=== PATIENT | male | born 1940 | race Caucasian/White ===

== ENCOUNTER 2017-11-14 16:15 | Outpatient (CLI) | payer OTHER, SELFPAY ==
--- NOTE | 2017-11-14 14:00 | DI.RAD_ITS ---
SYMPTOMS/DIAGNOSIS: F/U PULMONARY NODULE SEEN ON CT, SOLITARY PULMONARY NODULE , R91.1 CHEST X-RAY, PA AND LATERAL: Comparison is 05/25/17. The heart size and pulmonary vasculature are within normal limits. There are a few scattered densities in the lungs, including what appears to be a nodule in the right mid lung field laterally. This may correspond to the findings seen on the CT scan from 05/25/17. This is nonspecific. These may represent multiple calcified granulomas. No focal infiltrates, effusions or pneumothoraces are identified. Degenerative changes are seen in the spine. IMPRESSION: A few scattered small densities in the lungs. They are nonspecific. They may represent calcified granulomas. For followup of the pulmonary nodule, a CT scan of the chest should be considered. A noncontrast CT scan may be obtained.
== END 2017-11-14 16:35 ==
PROVIDERS: PCP Family Medicine; Visit Provider Family Medicine
DX: R91.1 Solitary pulmonary nodule (principal); J84.10 Pulmonary fibrosis, unspecified
CPT/HCPCS: 71046

== ENCOUNTER 2017-11-21 13:08 | Emergency (ER) | payer OTHER, SELFPAY ==
[2017-11-21 13:24] VITALS: BP 117/63; PULSE 72; RESP 20; TEMP 36.7; O2SAT 97
--- NOTE | 2017-11-21 15:45 | W.ED.GENAD ---
Discharge Plan Disposition Patient Disposition: HOME Discharge Details Chief Complaint: RashLesion Clinical Impression: Abscess, Cellulitis Primary Care Provider: Abram Jones ED Provider: Dwight Rizo [place] Meds and New Rx's Prescriptions: New cephalexin [Keflex] 500 mg capsule 500 mg PO QID Qty: 40 RF: 0 No Action aspirin 81 MG tablet,delayed release (DR/EC) 1 tab PO DAILY RF: 0 triamcinolone acetonide 15 GM cream Topical BID Qty: 30 RF: 3 omeprazole 20 MG capsule,delayed release(DR/EC) 20 mg PO DAILY Qty: 90 RF: 4 hydrochlorothiazide 25 MG tablet 1 tab PO DAILY Qty: 90 RF: 4 Metoprolol Succinate 50 MG TAB.ER.24H 50 mg PO DAILY Qty: 90 RF: 4 multivitamin 1 EACH capsule 1 ea PO DAILY RF: 0 michael rxxdxc-Wt-jazCwkllprte-tea [Apple Cider Vinegar Plus] 1 EACH tablet 1 ea PO DAILY RF: 0 glucosam-chond qm-kucevv-nx ac 1 EACH capsule 1 ea PO DAILY RF: 0 tamsulosin 0.4 MG capsule 1 - 2 cap PO HS Qty: 180 RF: 3 gabapentin 100 MG capsule 2 cap PO TID Qty: 540 RF: 3 amlodipine 5 MG tablet 5 mg PO DAILY Qty: 90 RF: 4 ranitidine HCl 150 MG capsule 150 mg PO .QOD RF: 0 L.acidoph, paracasei,B. lactis 1 EACH capsule 1 ea PO DAILY RF: 0 calcium carbonate [Tums] 200 MG tablet,chewable 200 mg PO PRN PRNRF: 0 acetaminophen [Tylenol] 325 MG tablet 650 mg PO PRN PRNRF: 0 ibuprofen 600 MG tablet 600 mg PO Q6H PRN PRNQty: 30 RF: 0 Discharge Instructions Instructions: Cellulitis (ED), Abscess (ED) Referrals: [facility] Emergency Dept. [Outside] - Return if symptoms worsen Discharge Data Discharge Date/Time-TO BE ENTERED AT DEPARTURE: 11/21/17 16:00 Medical Decision Making Department was very busy. Patient examined in triage box. The area he referred to on the left axilla is healed up nicely. The new area on the right is a draining abscess originating as ingrown hair or folliculitis, is now an abscess with accompanying cellulitis. I advised to use warm compresses five to six days times a day. No more ointments. I prescribed Keflex and sent culture of the draining fluid. I advised to return to ED if symptoms worsen otherwise with pcp. He agreed with POC. I did call Jeff the following Friday or two days later to check on him and apprise him of culture report. He reported the redness seemed to less red and the area was receding. He denies any complications from antibiotics. He does report more drainage than initially expected. The pain is the same. He is applying warm compresses 4-6 times a day. Denies any fever or N/V/D. I advised to schedule appointment with Dr. Jones for after the completion of the antibiotics. If the symptoms worse I advised to return to ED. If all resolved before appointment with Dr. Jones he could cancel appointment. I explained that the abscess may need further I&D or exploring to resolve the problem but unlikely. HPI General Mode of arrival: ambulatory. Date/Time Provider Initiated Documentation: 11/21/17 14:45. Limitations to Documentation: no limitations. Information obtained by: patient. HPI Narrative: 77 y/o male here with c/o rash, he question shingles versus infection. He noted rash under left arm that seems to have dried up but he noticed new draining rash 3-4 days under the right arm. He tells me he notices it to drain at night. It is painful when he moves his arm. He incidentally notes he had a shingles vaccine two weeks ago. Related Data Home Medications Medication Instructions Recorded Confirmed aspirin 1 tab PO DAILY 11/05/13 11/14/17 triamcinolone acetonide 0 TOPICAL BID #30 g 06/13/16 11/14/17 hydrochlorothiazide 1 tab PO DAILY #90 tab 11/14/16 11/14/17 omeprazole 20 mg PO DAILY #90 tab-cap 11/14/16 11/14/17 michael liiqis-Yt-lqkCrpijjqzc-tea 1 ea PO DAILY NS 06/13/17 11/14/17 [Apple Cider Vinegar Plus] glucosam-chond yv-scxkbf-yz ac 1 ea PO DAILY NS 06/13/17 11/14/17 multivitamin 1 ea PO DAILY NS 06/13/17 11/14/17 tamsulosin 1 - 2 cap PO HS #180 tab-cap 06/13/17 11/14/17 L.acidoph, paracasei,B. lactis 1 ea PO DAILY 07/01/17 11/14/17 ranitidine HCl 150 mg PO .QOD 07/01/17 11/14/17 acetaminophen [Tylenol] 650 mg PO PRN PRN 07/03/17 11/14/17 calcium carbonate [Tums] 200 mg PO PRN PRN 07/03/17 11/14/17 ibuprofen 600 mg PO Q6H PRN PRN #30 tab 07/03/17 11/14/17 gabapentin 2 cap PO TID #540 tab-cap 08/12/17 11/14/17 amlodipine 5 mg PO DAILY #90 tab-cap 09/18/17 11/14/17 cephalexin [Keflex] 500 mg PO QID #40 cap 11/21/17 Previous Rx's Medication Instructions Recorded hydrochlorothiazide 1 tab PO DAILY #90 tab 11/14/16 omeprazole 20 mg PO DAILY #90 tab-cap 11/14/16 tamsulosin 1 - 2 cap PO HS #180 tab-cap 06/13/17 ibuprofen 600 mg PO Q6H PRN PRN #30 tab 07/03/17 gabapentin 2 cap PO TID #540 tab-cap 08/12/17 amlodipine 5 mg PO DAILY #90 tab-cap 09/18/17 cephalexin [Keflex] 500 mg PO QID #40 cap 11/21/17 Allergies Allergy/AdvReac Type Severity Reaction Status Date / Time lisinopril AdvReac Unknown trouble Unverified 11/14/17 11:02 clearing throat General Stated Complaint: RashLesion ELIZABETH: 4 Review of Systems ENT Reports system reviewed and no additional complaints, except as docu Cardiovascular Reports system reviewed and no additional complaints, except as docu Respiratory Reports system reviewed and no additional complaints, except as docu Gastrointestinal Reports system reviewed and no additional complaints, except as docu Integumentary/Breasts Reports furuncle (versus ingrown hair to right axilla), Denies breast pain, Reports erythema and Reports wounds Comments: draining right axilla. PFSH Family History Mother Mental disorder Father Essential hypertension Heart disease Sister Neoplasm Sister Neoplasm Sister No problems noted. Medical History BPH (benign prostatic hyperplasia) Burning feet syndrome Diverticulosis GERD (gastroesophageal reflux disease) History of alcohol abuse Hypertension Left inguinal hernia Right inguinal hernia Spinal stenosis Umbilical hernia Social History Smoking/Tobacco Use Status: Former Tobacco Use Surgical History Colonoscopy - MAC Repair of inguinal hernia (07/03/17) Tonsillectomy Exam [facility] Head: normal to inspection General nose exam: external nose normal Face and sinus: normal facial exam Eyes General: appearance normal, both eyes and all related structures Neck Neck: normal visual inspection, full ROM and no lymphadenopathy Chest Chest: normal inspection of the chest Skin General skin exam: erythema (right axilla with draining abscess. Left axilla has dry crusted 5mm area that is now clean and dry with no redness or drainage. ) and no fluctuance Rashes: no rashes Extrem General: full ROM and normal capillary refill Right upper extremity: full ROM and normal capillary refill Shoulder/upper arm images: 1. redness to right axilla extending to anterior chest chest wall. Warm to touch. Axillary adenopathy. Small pin point hole draining yellow discharge. Underlying swelling that is firm to touch, area is size of baseball. Psych Appearance: grossly normal Mood: congruent mood Affect: normal affect Attitude: cooperative Thought Process: normal Thought Content: normal Insight: insight good Judgment: judgment good Course Vital Signs Temperature 36.7 C 11/21/17 13:24 Pulse 72 11/21/17 13:24 Respiratory Rate 20 11/21/17 13:24 Blood Pressure 117/63 11/21/17 13:24 Pulse Oximetry 97 11/21/17 13:24 Temperature 36.7 C 11/21/17 13:24 Temperature Source Temporal Artery Scan 11/21/17 13:24 Pulse 72 11/21/17 13:24 Respiratory Rate 20 11/21/17 13:24 Respiratory Effort Non-Labored 11/21/17 15:34 Blood Pressure 117/63 11/21/17 13:24 Pulse Oximetry 97 11/21/17 13:24 Oxygen Delivery Method Room Air 11/21/17 13:24 Oxygen Flow Rate 0 11/21/17 13:24 Pain Level 5 11/21/17 13:24
--- NOTE | 2017-11-21 15:49 | ED.GENADUL_ITS ---
Discharge Plan Disposition Patient Disposition: HOME Discharge Details Chief Complaint: RashLesion Clinical Impression: Abscess, Cellulitis Primary Care Provider: Abram Jones ED Provider: Dwight Rizo [place] Meds and New Rx's Prescriptions: New cephalexin [Keflex] 500 mg capsule 500 mg PO QID Qty: 40 RF: 0 No Action aspirin 81 MG tablet,delayed release (DR/EC) 1 tab PO DAILY RF: 0 triamcinolone acetonide 15 GM cream Topical BID Qty: 30 RF: 3 omeprazole 20 MG capsule,delayed release(DR/EC) 20 mg PO DAILY Qty: 90 RF: 4 hydrochlorothiazide 25 MG tablet 1 tab PO DAILY Qty: 90 RF: 4 Metoprolol Succinate 50 MG TAB.ER.24H 50 mg PO DAILY Qty: 90 RF: 4 multivitamin 1 EACH capsule 1 ea PO DAILY RF: 0 michael hrvyuj-Gp-zjeYsllkwvyb-tea [Apple Cider Vinegar Plus] 1 EACH tablet 1 ea PO DAILY RF: 0 glucosam-chond dc-gafcsm-yu ac 1 EACH capsule 1 ea PO DAILY RF: 0 tamsulosin 0.4 MG capsule 1 - 2 cap PO HS Qty: 180 RF: 3 gabapentin 100 MG capsule 2 cap PO TID Qty: 540 RF: 3 amlodipine 5 MG tablet 5 mg PO DAILY Qty: 90 RF: 4 ranitidine HCl 150 MG capsule 150 mg PO .QOD RF: 0 L.acidoph, paracasei,B. lactis 1 EACH capsule 1 ea PO DAILY RF: 0 calcium carbonate [Tums] 200 MG tablet,chewable 200 mg PO PRN PRNRF: 0 acetaminophen [Tylenol] 325 MG tablet 650 mg PO PRN PRNRF: 0 ibuprofen 600 MG tablet 600 mg PO Q6H PRN PRNQty: 30 RF: 0 Discharge Instructions Instructions: Cellulitis (ED), Abscess (ED) Referrals: [facility] Emergency Dept. [Outside] - Return if symptoms worsen Discharge Data Discharge Date/Time-TO BE ENTERED AT DEPARTURE: 11/21/17 16:00 Medical Decision Making Department was very busy. Patient examined in triage box. The area he referred to on the left axilla is healed up nicely. The new area on the right is a draining abscess originating as ingrown hair or folliculitis, is now an abscess with accompanying cellulitis. I advised to use warm compresses five to six days times a day. No more ointments. I prescribed Keflex and sent culture of the draining fluid. I advised to return to ED if symptoms worsen otherwise with pcp. He agreed with POC. I did call Jeff the following Friday or two days later to check on him and apprise him of culture report. He reported the redness seemed to less red and the area was receding. He denies any complications from antibiotics. He does report more drainage than initially expected. The pain is the same. He is applying warm compresses 4-6 times a day. Denies any fever or N/V/D. I advised to schedule appointment with Dr. Jones for after the completion of the antibiotics. If the symptoms worse I advised to return to ED. If all resolved before appointment with Dr. Jones he could cancel appointment. I explained that the abscess may need further I&D or exploring to resolve the problem but unlikely. HPI General Mode of arrival: ambulatory . Date/Time Provider Initiated Documentation: 11/21/17 14:45 . Limitations to Documentation: no limitations . Information obtained by: patient . HPI Narrative: 77 y/o male here with c/o rash, he question shingles versus infection. He noted rash under left arm that seems to have dried up but he noticed new draining rash 3-4 days under the right arm. He tells me he notices it to drain at night. It is painful when he moves his arm. He incidentally notes he had a shingles vaccine two weeks ago. Related Data Home Medications Medication Instructions Recorded Confirmed aspirin 1 tab PO DAILY 11/05/13 11/14/17 triamcinolone acetonide 0 TOPICAL BID #30 g 06/13/16 11/14/17 hydrochlorothiazide 1 tab PO DAILY #90 tab 11/14/16 11/14/17 omeprazole 20 mg PO DAILY #90 tab-cap 11/14/16 11/14/17 michael ucwsdy-Xx-rydNxjwxmyjd-tea 1 ea PO DAILY NS 06/13/17 11/14/17 [Apple Cider Vinegar Plus] glucosam-chond rm-dtypxi-ei ac 1 ea PO DAILY NS 06/13/17 11/14/17 multivitamin 1 ea PO DAILY NS 06/13/17 11/14/17 tamsulosin 1 - 2 cap PO HS #180 tab-cap 06/13/17 11/14/17 L.acidoph, paracasei,B. lactis 1 ea PO DAILY 07/01/17 11/14/17 ranitidine HCl 150 mg PO .QOD 07/01/17 11/14/17 acetaminophen [Tylenol] 650 mg PO PRN PRN 07/03/17 11/14/17 calcium carbonate [Tums] 200 mg PO PRN PRN 07/03/17 11/14/17 ibuprofen 600 mg PO Q6H PRN PRN #30 tab 07/03/17 11/14/17 gabapentin 2 cap PO TID #540 tab-cap 08/12/17 11/14/17 amlodipine 5 mg PO DAILY #90 tab-cap 09/18/17 11/14/17 cephalexin [Keflex] 500 mg PO QID #40 cap 11/21/17 Previous Rx's Medication Instructions Recorded hydrochlorothiazide 1 tab PO DAILY #90 tab 11/14/16 omeprazole 20 mg PO DAILY #90 tab-cap 11/14/16 tamsulosin 1 - 2 cap PO HS #180 tab-cap 06/13/17 ibuprofen 600 mg PO Q6H PRN PRN #30 tab 07/03/17 gabapentin 2 cap PO TID #540 tab-cap 08/12/17 amlodipine 5 mg PO DAILY #90 tab-cap 09/18/17 cephalexin [Keflex] 500 mg PO QID #40 cap 11/21/17 Allergies Allergy/AdvReac Type Severity Reaction Status Date / Time lisinopril AdvReac Unknown trouble Unverified 11/14/17 11:02 clearing throat General Stated Complaint: RashLesion ELIZABETH: 4 Review of Systems ENT Reports system reviewed and no additional complaints, except as docu Cardiovascular Reports system reviewed and no additional complaints, except as docu Respiratory Reports system reviewed and no additional complaints, except as docu Gastrointestinal Reports system reviewed and no additional complaints, except as docu Integumentary/Breasts Reports furuncle (versus ingrown hair to right axilla), Denies breast pain, Reports erythema and Reports wounds Comments: draining right axilla. PFSH Family History Mother Mental disorder Father Essential hypertension Heart disease Sister Neoplasm Sister Neoplasm Sister No problems noted. Medical History BPH (benign prostatic hyperplasia) Burning feet syndrome Diverticulosis GERD (gastroesophageal reflux disease) History of alcohol abuse Hypertension Left inguinal hernia Right inguinal hernia Spinal stenosis Umbilical hernia Social History Smoking/Tobacco Use Status: Former Tobacco Use Surgical History Colonoscopy - MAC Repair of inguinal hernia (07/03/17) Tonsillectomy Exam [facility] Head: normal to inspection General nose exam: external nose normal Face and sinus: normal facial exam Eyes General: appearance normal, both eyes and all related structures Neck Neck: normal visual inspection, full ROM and no lymphadenopathy Chest Chest: normal inspection of the chest Skin General skin exam: erythema (right axilla with draining abscess. Left axilla has dry crusted 5mm area that is now clean and dry with no redness or drainage. ) and no fluctuance Rashes: no rashes Extrem General: full ROM and normal capillary refill Right upper extremity: full ROM and normal capillary refill Shoulder/upper arm images: 2 1. redness to right axilla extending to anterior chest chest wall. Warm to touch. Axillary adenopathy. Small pin point hole draining yellow discharge. Underlying swelling that is firm to touch, area is size of baseball. Psych Appearance: grossly normal Mood: congruent mood Affect: normal affect Attitude: cooperative Thought Process: normal Thought Content: normal Insight: insight good Judgment: judgment good Course Vital Signs Temperature 36.7 C 11/21/17 13:24 Pulse 72 11/21/17 13:24 Respiratory Rate 20 11/21/17 13:24 Blood Pressure 117/63 11/21/17 13:24 Pulse Oximetry 97 11/21/17 13:24 Temperature 36.7 C 11/21/17 13:24 Temperature Source Temporal Artery Scan 11/21/17 13:24 Pulse 72 11/21/17 13:24 Respiratory Rate 20 11/21/17 13:24 Respiratory Effort Non-Labored 11/21/17 15:34 Blood Pressure 117/63 11/21/17 13:24 Pulse Oximetry 97 11/21/17 13:24 Oxygen Delivery Method Room Air 11/21/17 13:24 Oxygen Flow Rate 0 11/21/17 13:24 Pain Level 5 11/21/17 13:24
== END 2017-11-21 16:00 | disposition home or self-care (01) ==
PROVIDERS: Emergency Provider Nurse Practitioner Family; PCP Family Medicine
DX: L02.411 Cutaneous abscess of right axilla (principal); L03.111 Cellulitis of right axilla; B95.61 Methicillin susceptible Staphylococcus aureus infection as the cause of diseases classified elsewhere; I10 Essential (primary) hypertension
CPT/HCPCS: 87077; 99283; 87070; 87186

== ENCOUNTER 2017-11-27 15:53 | Emergency (ER) | payer OTHER, SELFPAY ==
[2017-11-27 16:05] VITALS: BP 165/87; PULSE 82; RESP 16; TEMP 36.7; O2SAT 97
--- NOTE | 2017-11-27 16:23 | ED.GENADUL_ITS ---
Discharge Plan Disposition Patient Disposition: HOME Condition: Stable Discharge Details Chief Complaint: Cellulitis Clinical Impression: Hidradenitis suppurativa of right axilla, Anemia Primary Care Provider: Abram Jones ED Provider: Braeden Gann Home Meds and New Rx's Prescriptions: New doxycycline hyclate 100 mg capsule 100 mg PO BID Qty: 14 RF: 0 No Action triamcinolone acetonide 15 GM cream Topical BID Qty: 30 RF: 3 multivitamin 1 EACH capsule 1 ea PO DAILY RF: 0 glucosam-chond vs-okjwsk-xi ac 1 EACH capsule 1 ea PO DAILY RF: 0 tamsulosin 0.4 MG capsule 1 - 2 cap PO HS Qty: 180 RF: 3 gabapentin 100 MG capsule 2 cap PO TID Qty: 540 RF: 3 amlodipine 5 MG tablet 5 mg PO DAILY Qty: 90 RF: 4 hydrochlorothiazide 25 mg tablet 25 mg PO DAILY Qty: 90 RF: 4 metoprolol succinate 50 mg tablet extended release 24 hr 50 mg PO DAILY Qty: 90 RF: 4 ranitidine HCl 150 MG capsule 150 mg PO .QOD RF: 0 L.acidoph, paracasei,B. lactis 1 EACH capsule 1 ea PO DAILY RF: 0 calcium carbonate [Tums] 200 MG tablet,chewable 200 mg PO PRN PRNRF: 0 acetaminophen [Tylenol] 325 MG tablet 650 mg PO PRN PRNRF: 0 ibuprofen 600 MG tablet 600 mg PO Q6H PRN PRNQty: 30 RF: 0 cephalexin [Keflex] 500 mg capsule 500 mg PO QID Qty: 40 RF: 0 Discharge Instructions Instructions: Anemia (ED) Additional Instructions: Please take antibiotics as prescribed until fully complete and the radiology department will call you tomorrow morning for arrangement of outpatient ultrasound. Tomorrow afternoon you should also call the general surgeon for arrangement of follow-up appointment. In regards to your anemia you should schedule an appointment with your primary care provider in the next 1-2 weeks for reassessment. Referrals: Cesar Christianson DO [ [facility] STAFF PHYSICIAN] - (Call the office for arrangement of follow-up) Abram Jones MD [Primary Care Provider] - 2 weeks (for reassessment) Discharge Data Discharge Date/Time-TO BE ENTERED AT DEPARTURE: 11/27/17 18:34 Medical Decision Making Patient presenting to the emergency department for chief complaint of right axillary swelling and redness. Patient states that a couple of weeks ago he had a similar single lesion under his left arm that he was placed on Keflex for and had resolution of symptoms. Then over the last2 days he has noted some area underneath his right arm that is rapidly progressed and has started draining. Patient does state that he got a shingles shot just before the onset of all of the symptoms but is unsure if it is interconnected. Physical exam shows the appearance of hidradenitis underneath the right axilla with drainage noted. These do feel interconnected and multiple nodules. Ultrasound is not available at time of patient presentation but laboratory testing was ordered. Patient is otherwise well in appearance with no other complaints at this time. Review of labs shows no significant leukocytosis and is otherwise nondiagnostic. Of notation was a mild anemia and elevation of LFTs which the LFTs have been elevated in the past. Patient denies any bleeding episodes or other signs of occult blood loss patient was switched off of Keflex and placed upon doxycycline as I feel that this is a better treatment for hidradenitis but given multiple areas with drainage and recurrence patient was referred to general surgery for close follow-up and any further treatment recommendations. Patient was encouraged to return for any associated fever chills, rapid worsening of symptoms, or other concerns. I do not feel that any sort of incision and drainage should be performed today but patient was encouraged to continue to promote drainage by applying warm wash cloths 4 times daily. Patient also informed not to place any lotions or ointments or deodorants underneath the arms until this is fully resolved. After discussion of diagnosis and plan of care patient is no further needs, questions, or concerns and states clear understanding to return to the emergency department for any worsening symptoms. Patient was placed on care management list for referral to general surgeon along with primary care for recheck of lab. HPI General Mode of arrival: ambulatory . Date/Time Provider Initiated Documentation: 11/27/17 16:16 . Limitations to Documentation: no limitations . Information obtained by: patient, RN notes reviewed and old records reviewed . History of Present Illness 77 year old M presents to the emergency department with the chief complaint of Axillary infection, described as moderate, with intensity rated at 8. Quality is described as aching and dull, and is localized to the chest. Patient reports no radiation. Patient started experiencing this day(s) (3) and it has been constant. No relieving factors improve symptom(s), No exacerbating factors reported . Patient notes no other symptoms.. Patient did receive the following treatments prior to arrival, NSAID Related Data Home Medications Medication Instructions Recorded Confirmed triamcinolone acetonide 0 TOPICAL BID #30 g 06/13/16 11/14/17 glucosam-chond wd-xbichy-te ac 1 ea PO DAILY NS 06/13/17 11/27/17 multivitamin 1 ea PO DAILY NS 06/13/17 11/27/17 tamsulosin 1 - 2 cap PO HS #180 tab-cap 06/13/17 11/27/17 L.acidoph, paracasei,B. lactis 1 ea PO DAILY 07/01/17 11/27/17 ranitidine HCl 150 mg PO .QOD 07/01/17 11/27/17 acetaminophen [Tylenol] 650 mg PO PRN PRN 07/03/17 11/27/17 calcium carbonate [Tums] 200 mg PO PRN PRN 07/03/17 11/27/17 ibuprofen 600 mg PO Q6H PRN PRN #30 tab 07/03/17 11/27/17 gabapentin 2 cap PO TID #540 tab-cap 08/12/17 11/27/17 amlodipine 5 mg PO DAILY #90 tab-cap 09/18/17 11/27/17 cephalexin [Keflex] 500 mg PO QID #40 cap 11/21/17 11/27/17 hydrochlorothiazide 25 mg tablet 25 mg PO DAILY #90 tab 11/24/17 11/27/17 metoprolol succinate ER 50 mg 50 mg PO DAILY #90 tab 11/26/17 11/27/17 tablet,extended release 24 hr doxycycline hyclate 100 mg PO BID #14 cap 11/27/17 Previous Rx's Medication Instructions Recorded tamsulosin 1 - 2 cap PO HS #180 tab-cap 06/13/17 ibuprofen 600 mg PO Q6H PRN PRN #30 tab 07/03/17 gabapentin 2 cap PO TID #540 tab-cap 08/12/17 amlodipine 5 mg PO DAILY #90 tab-cap 09/18/17 cephalexin [Keflex] 500 mg PO QID #40 cap 11/21/17 hydrochlorothiazide 25 mg tablet 25 mg PO DAILY #90 tab 11/24/17 metoprolol succinate ER 50 mg 50 mg PO DAILY #90 tab 11/26/17 tablet,extended release 24 hr doxycycline hyclate 100 mg PO BID #14 cap 11/27/17 Allergies Allergy/AdvReac Type Severity Reaction Status Date / Time lisinopril AdvReac Unknown trouble Unverified 11/27/17 18:18 clearing throat General Stated Complaint: Cellulitis ELIZABETH: 4 Review of Systems Constitutional Denies body ache(s), Denies chills and Denies fever(s) Cardiovascular Denies chest pain and Denies dyspnea Respiratory Denies dyspnea Gastrointestinal Denies abdominal pain, Denies diarrhea, Denies nausea, Denies vomiting and Denies hematemesis Integumentary/Breasts Reports as per HPI and Reports rash Neurologic Denies confusion and Denies sensory deficit Psychiatric Denies confusion Hematologic/Lymphatic Denies easy bleeding and Denies easy bruising PFSH Family History Mother Mental disorder Father Essential hypertension Heart disease Sister Neoplasm Sister Neoplasm Sister No problems noted. Medical History BPH (benign prostatic hyperplasia) Burning feet syndrome Diverticulosis GERD (gastroesophageal reflux disease) History of alcohol abuse Hypertension Left inguinal hernia Right inguinal hernia Spinal stenosis Umbilical hernia Social History Smoking/Tobacco Use Status: Former Tobacco Use Surgical History Colonoscopy - [facility] Repair of inguinal hernia (07/03/17) Tonsillectomy Exam Const General: cooperative, no acute distress and not ill appearing Orientation: alert, awake and oriented x3 HENMT Mouth: moist mucous membranes Chest Breast palpation: abnormal palpation of the axilla right other (Erythematous induration in multiple nodules that appear connected. One central area with opening in the skin and drainage is noted.) Resp Effort & Inspection: normal respiratory effort, able to speak in complete sentences and no respiratory distress Auscultation: clear to auscultation bilaterally Cardio Rate: regular rate Rhythm: regular rhythm Heart Sounds: S1 normal and S2 normal Skin General skin exam: no rashes or lesions noted Neuro General: alert, awake, oriented x3, moves all extremities and no focal motor deficits Sensory Exam: no sensory deficits noted Course Vital Signs Temperature 36.7 C 11/27/17 16:05 Pulse 82 11/27/17 16:05 Respiratory Rate 16 11/27/17 16:05 Blood Pressure 165/87 H 11/27/17 16:05 Pulse Oximetry 97 11/27/17 16:05 Temperature 36.7 C 11/27/17 16:05 Temperature Source Skin 11/27/17 16:05 Pulse 82 11/27/17 16:05 Respiratory Rate 16 11/27/17 16:05 Blood Pressure 165/87 H 11/27/17 16:05 Blood Pressure Position Sitting 11/27/17 16:05 Pulse Oximetry 97 11/27/17 16:05 Oxygen Delivery Method Room Air 11/27/17 16:05 Oxygen Flow Rate 0 11/27/17 16:05 Pain Level 5 11/27/17 16:05
[2017-11-27 16:59] LABS: Abs Immature Grans 0.05 k/cumm (0.0-0.09); Absolute Basophil Count 0.03 k/cumm (0.0-0.2); Absolute Eosinophil Count 0.18 k/cumm (0.0-0.7); Absolute Lymphocyte Count 2.29 k/cumm (1.2-3.4); Absolute Monocyte Count 0.66 k/cumm (0.11-0.7); Absolute Neutrophil Count 2.84 k/cumm (1.2-6.7); Basophils % 0.5; HGB 12.9 g/dL (13.5-17.5); Immature Grans % 0.8; Lymphocytes % 37.9; Mean Corp. HGB Concentration 34.9 g/dL (32.0-36.0); Mean Corpuscular Hemoglobin 31.8 pg (27.0-33.0); Mean Corpuscular Volume 91.1 fL (80-95); Mean Platelet Volume 9.2 fL (8.0-11.0); Monocytes % 10.9; Neutrophils % 46.9; Platelet Count 303 x1000/uL (130-400); RBC 4.06 m/cumm (4.50-6.00); RBC Distribution Width 12.9 % (11.8-14.1); White Blood Cell Count 6.05 k/cumm (4.4-10.8)
[2017-11-27 17:34] LABS: ALT 76 U/L (12-78); AST 53 U/L (15-37); Albumin 3.1 g/dL (3.4-5.0); Alkaline Phosphatase 147 U/L (46-116); Anion Gap 7.9 mmol/L (3-11); BUN 15 mg/dL (7-18); Bilirubin, Total 0.4 mg/dL (0.2-1.0); CO2 29.1 mmol/L (21.0-32.0); CREATININE 0.87 mg/dL (0.70-1.30); Calcium 8.8 mg/dL (8.5-10.1); Chloride 98 mmol/L (98-107); Glucose 97 mg/dL (70-100); Potassium 3.6 mmol/L (3.5-5.1); Sodium 135 mmol/L (136-145); Total Protein 7.1 g/dL (6.4-8.2)
[2017-11-27 18:32] VITALS: BP 165/87; PULSE 82; RESP 16; TEMP 36.7; O2SAT 97
--- NOTE | 2017-11-28 10:38 | PDOC.ERCMPRO ---
Care Management Progress Note 11/28/17-Pt seen for anemia and hidradentis suppurativa of right axilla. Faxed referral f/u to PCP at [facility]
== END 2017-11-27 18:34 | disposition home or self-care (01) ==
PROVIDERS: Emergency Provider Nurse Practitioner Family; PCP Family Medicine
DX: L73.2 Hidradenitis suppurativa (principal); D64.9 Anemia, unspecified; I10 Essential (primary) hypertension
CPT/HCPCS: 36415; 80053; 99283; 85025

== ENCOUNTER 2018-06-12 02:16 | Outpatient (CLI) | payer OTHER, SELFPAY ==
--- NOTE | 2018-06-12 15:15 | DI.CT_ITS ---
SYMPTOM/DIAGNOSIS: F/U PULMONARY NODULE ON CHEST XRAY, R91.[address]: CT scan of the chest was performed following the uneventful administration of intravenous contrast material. Comparison chest xray is 11/14/17. There is atherosclerosis of the thoracic aorta but no aneurysmal dilatation is seen. Heart size is within normal limits. No significant pericardial effusion is seen. Coronary artery calcifications are present. No significant thoracic adenopathy is appreciated. There is no pleural effusion or pneumothorax present. There are several calcified granulomas seen in the lungs bilaterally. There is focal pleural thickening seen involving the posterior aspect of the right major fissure. There are no non calcified pulmonary nodules appreciated. Fibrotic changes are seen in the lung bases bilaterally. There is an air space opacity in the lateral aspect of the right upper lobe. This may be infectious or inflammatory in nature. The tracheobronchial tree is unremarkable. The upper abdominal images show cholelithiasis. No biliary ductal dilatation. There is a left renal cyst noted. There is a small hiatal hernia. Degenerative changes are seen in the spine. IMPRESSION: 1. No non calcified pulmonary nodules. 2. Multiple calcified pulmonary granuloma. 3. Pulmonary fibrosis. 4. Right upper lobe air space opacity. This may represent an infectious or inflammatory process. 5. Cholelithiasis.
[2018-06-12 15:45] LABS: CREATININE 1.06 mg/dL (0.70-1.30)
[2018-06-12] MEDS: Omnipaque 350 MG/ML 100 ML BTL IV (16:08)
== END 2018-06-12 02:36 ==
PROVIDERS: PCP Family Medicine; Visit Provider Family Medicine
DX: R91.1 Solitary pulmonary nodule (principal); J84.10 Pulmonary fibrosis, unspecified
CPT/HCPCS: 71260; 82565; J3490

== ENCOUNTER 2018-07-02 02:07 | Outpatient (CLI) | payer OTHER, SELFPAY ==
[2018-07-02 08:30] LABS: Anion Gap 7.2 mmol/L (3-11); BUN 13 mg/dL (7-18); CO2 30.8 mmol/L (21.0-32.0); CREATININE 0.87 mg/dL (0.70-1.30); Calcium 9.1 mg/dL (8.5-10.1); Chloride 98 mmol/L (98-107); Glucose 81 mg/dL (70-100); Potassium 3.9 mmol/L (3.5-5.1); Sodium 136 mmol/L (136-145)
== END 2018-07-02 02:27 ==
PROVIDERS: PCP Family Medicine; Visit Provider Family Medicine
DX: I10 Essential (primary) hypertension (principal)
CPT/HCPCS: 36415; 80048

== ENCOUNTER 2019-07-23 03:13 | Outpatient (CLI) | payer OTHER, SELFPAY ==
[2019-07-23 08:10] LABS: Anion Gap 5.3 mmol/L (3-11); BUN 12 mg/dL (7-18); CO2 29.7 mmol/L (21.0-32.0); CREATININE 1.18 mg/dL (0.70-1.30); Chloride 97 mmol/L (98-107); Estimated GFR 59.55 (mL/min/1.73m2); Glucose 96 mg/dL (74-106); Potassium 3.7 mmol/L (3.5-5.1); Sodium 132 mmol/L (136-145)
== END 2019-07-23 03:33 ==
PROVIDERS: PCP Family Medicine; Visit Provider Family Medicine
DX: I10 Essential (primary) hypertension (principal)
CPT/HCPCS: 36415; 80048

== ENCOUNTER 2019-08-19 02:07 | Outpatient (CLI) | payer OTHER, SELFPAY ==
[2019-08-19 11:49] LABS: Bilirubin Negative (Negative); Blood Large (Negative); Clarity Clear (Clear); Glucose Negative (Negative); Ketones Trace mg/dL (Negative); Leukocyte Esterase Negative (Negative); Nitrite Negative (Negative); Urobilinogen 0.2 EU/dL (Up TO 0.2)
[2019-08-19 11:57] LABS: Bacteria Moderate HPF (Negative); Epithelial Cells Negative HPF (Negative); RBC >50 HPF (0-2)
[2019-08-19 11:58] LABS: C & S Indicated? Yes; Casts Negative LPF (Negative); Crystals Negative HPF (Negative); Mucus Trace (Negative)
[2019-08-19 12:07] LABS: Abs Immature Grans 0.01 k/cumm (0.0-0.09); Absolute Basophil Count 0.01 k/cumm (0.0-0.2); Absolute Eosinophil Count 0.04 k/cumm (0.0-0.7); Basophils % 0.1; Eosinophils % 0.6; HCT 35.8 % (40.0-50.0); HGB 13.1 g/dL (13.5-17.5); Immature Grans % 0.1 %; Lymphocytes % 21.2; Mean Corp. HGB Concentration 36.6 g/dL (32.0-36.0); Mean Corpuscular Hemoglobin 33.1 pg (27.0-33.0); Mean Corpuscular Volume 90.4 fL (80-95); Mean Platelet Volume 10.7 fL (8.0-11.0); Monocytes % 12.7; Neutrophils % 65.3; Platelet Count 292 x1000/uL (130-400); RBC 3.96 m/cumm (4.50-6.00); White Blood Cell Count 7.06 k/cumm (4.4-10.8)
[2019-08-19 12:41] LABS: ALT 248 U/L (16-63); AST 91 U/L (15-37); Albumin 3.6 g/dL (3.4-5.0); Alkaline Phosphatase 593 U/L (46-116); Anion Gap 10.6 mmol/L (3-11); BUN 15 mg/dL (7-18); Bilirubin, Total 1.3 mg/dL (0.2-1.0); CO2 28.4 mmol/L (21.0-32.0); CREATININE 1.13 mg/dL (0.70-1.30); Chloride 88 mmol/L (98-107); Glucose 158 mg/dL (74-106); Potassium 3.7 mmol/L (3.5-5.1); Sodium 127 mmol/L (136-145); Total Protein 7.3 g/dL (6.4-8.2)
== END 2019-08-19 02:27 ==
PROVIDERS: PCP Family Medicine; Visit Provider Family Medicine
DX: I10 Essential (primary) hypertension (principal); K21.9 Gastro-esophageal reflux disease without esophagitis; R39.11 Hesitancy of micturition
CPT/HCPCS: 36415; 80053; 81003; 81015; 85025; 87086

== ENCOUNTER 2019-08-30 00:47 | Outpatient (CLI) | payer OTHER, SELFPAY ==
--- NOTE | 2019-08-30 06:30 | DI.US_ITS ---
EXAM: US ABDOMEN CLINICAL HISTORY: upper abdominal pain and unintentional wgt loss,r63.4 TECHNIQUE: Ultrasound abdomen performed using standard protocol. COMPARISON: CT ABD PELVIS WITH CONTRAST from 05/25/2017 FINDINGS: ABDOMINAL AORTA AND IVC: Visualized portions normal caliber. PANCREAS: Normal where visualized. LIVER: Normal. Hepatopedal flow in the Portal Vein. GALLBLADDER: Gallstone is present. Limited evaluation of the gallbladder due to patient's recent corona l. No pericholecystic fluid identified. BILIARY SYSTEM: Common bile duct measures 5.3 mm. No intrahepatic biliary ductal dilation. FRANCIS'S SIGN: Negative. KIDNEYS: Kidneys are symmetric in size. No evidence of renal calculi. No evidence of hydronephrosis. Stable 1.6 cm simple cyst on the left kidney. SPLEEN: Not enlarged. ASCITES: None seen. IMPRESSION: Cholelithiasis. No biliary ductal dilatation. DATA REPOSITORY:
--- NOTE | 2019-08-30 06:30 | DI.RAD_ITS ---
EXAM: XR CHEST 2V PA LATERAL CLINICAL HISTORY: see unintentional wt loss, upper abd pain, r63.4 TECHNIQUE: 2D digital imaging was performed. COMPARISON: CR XR CHEST 2V PA LATERAL from 11/14/2017 FINDINGS: MEDIASTINUM: Normal. HEART: Normal. PULMONARY VASCULATURE: Normal. LUNGS: There is scarring in the periphery of the lungs which appears stable. No focal consolidating infiltrates. PLEURAL SPACE: No pleural effusion or pneumothorax. BONE:Age-appropriate degenerative changes are seen in the spine. OTHER FINDINGS:Normal. IMPRESSION: No acute pulmonary findings. DATA REPOSITORY: RADIATION DOSE DELIVERED:
== END 2019-08-30 01:07 ==
PROVIDERS: PCP Family Medicine; Visit Provider Family Medicine
DX: R10.10 Upper abdominal pain, unspecified (principal); R63.4 Abnormal weight loss; K80.20 Calculus of gallbladder without cholecystitis without obstruction; N28.1 Cyst of kidney, acquired
CPT/HCPCS: 71046; 76700

== ENCOUNTER 2019-09-13 21:55 | Outpatient (REF) | payer OTHER, SELFPAY ==
[2019-09-13 21:46] LABS: ALT 71 U/L (16-63); AST 43 U/L (15-37); Albumin 3.5 g/dL (3.4-5.0); Alkaline Phosphatase 208 U/L (46-116); Anion Gap 7.4 mmol/L (3-11); BUN 13 mg/dL (7-18); Bilirubin, Total 0.6 mg/dL (0.2-1.0); CO2 27.6 mmol/L (21.0-32.0); CREATININE 0.88 mg/dL (0.70-1.30); Calcium 8.5 mg/dL (8.5-10.1); Chloride 102 mmol/L (98-107); Glucose 131 mg/dL (74-106); Potassium 3.8 mmol/L (3.5-5.1); Sodium 137 mmol/L (136-145); Total Protein 6.7 g/dL (6.4-8.2)
== END 2019-09-13 22:15 ==
LOC: LBN 21:55
PROVIDERS: PCP Family Medicine; Visit Provider Family Medicine
DX: R63.4 Abnormal weight loss (principal)
CPT/HCPCS: 80053; 81003

== ENCOUNTER 2019-10-12 15:14 | Outpatient (REF) | payer OTHER, SELFPAY ==
[2019-10-12 21:00] LABS: ALT 46 U/L (16-63); AST 30 U/L (15-37); Albumin 3.1 g/dL (3.4-5.0); Alkaline Phosphatase 180 U/L (46-116); BUN 11 mg/dL (7-18); Bilirubin, Total 0.5 mg/dL (0.2-1.0); Calcium 8.6 mg/dL (8.5-10.1); Chloride 100 mmol/L (98-107); Glucose 140 mg/dL (74-106); Potassium 4.2 mmol/L (3.5-5.1); Sodium 136 mmol/L (136-145); Total Protein 6.5 g/dL (6.4-8.2)
== END 2019-10-12 15:34 ==
LOC: LBN 15:14
PROVIDERS: PCP Family Medicine; Visit Provider Family Medicine
DX: R63.4 Abnormal weight loss (principal); R79.89 Other specified abnormal findings of blood chemistry; R31.9 Hematuria, unspecified; R10.10 Upper abdominal pain, unspecified
CPT/HCPCS: 80053

== ENCOUNTER 2019-10-18 02:19 | Outpatient (CLI) | payer OTHER, SELFPAY ==
--- NOTE | 2019-10-18 07:00 | DI.CT_ITS ---
EXAM: CT ABDOMEN PELVIS W CLINICAL HISTORY: Elevated LFT Cholestatic pattern, wt loss, elevated LFTs, hematuria TECHNIQUE: Imaging Protocol: Axial computed tomography images with coronal and sagittal reformatted images were created and reviewed CONTRAST MATERIAL: Intravenous: Omnipaque 350 Contrast volume:100 mL Oral: Yes COMPARISON: CT ABD PELVIS WITH CONTRAST from 05/25/2017 FINDINGS: ABDOMEN: Lung Bases: Chronic fibrosis. Liver: Normal density. No measurable mass. Lobulated contour of the liver suspicious for hepatic cirr hosis. Portal, Superior Mesenteric, and Splenic Veins: Unremarkable. Gallbladder and Biliary Tract: Cholelithiasis. No biliary ductal dilatation. Pancreas: Normal density, no abnormal calcifications or inflammatory process. Spleen: Normal. Adrenals: No masses seen. Kidneys: Normal size, contour and axis. No radiodense stones or obstructive uropathy. Left renal cyst . Abdominal Aorta: Abdominal portion non-dilated. Atherosclerosis. Bowel: No obstruction or bowel wall thickening. No evidence of acute appendicitis. Colonic diverticu losis but no evidence of acute diverticulitis. Peritoneal Cavity: No ascites, collection or mesenteric inflammatory response. Lymph Nodes: Within normal limits. Bones: Degenerative changes in the spine. Soft Tissues: Fat containing left inguinal hernia. Small fat containing umbilical hernia. PELVIS: Bladder: Symmetric distention, no gross wall thickening. Reproductive Organs: Unremarkable as visualized. Lymph Nodes: Within normal limits. Bones: Degenerative changes. IMPRESSION: 1. Findings suggestive of hepatic cirrhosis. 2. Cholelithiasis. No biliary ductal dilatation. 3. Colonic diverticulosis. No evidence of acute diverticulitis. 4. Atherosclerosis. RADIATION DOSE DELIVERED: 889.68mGy.cm Total DLP DATA REPOSITORY: All CT scans at this facility are submitted to the National Radiology Data Registry (NRDR) Dose Index Registry (DIR) with the [employer] (ACR). RADIATION OPTIMIZATION: All CT scans at this facility use at least one of these dose optimization te chniques: automated exposure control; mA and/or kV adjustment per patient size (includes targeted exa ms where dose is matched to clinical indication); or iterative reconstruction.
[2019-10-18] MEDS: Omnipaque 350 MG/ML 100 ML BTL IJ (08:15)
[2019-10-18] MEDS: Omnipaque 350 MG/ML 50 ML BTL PO (08:16)
[2019-10-18] MEDS: Breeza Beverage 473 ML BTL PO (08:17)
== END 2019-10-18 02:39 ==
PROVIDERS: PCP Family Medicine; Visit Provider Family Medicine
DX: K80.20 Calculus of gallbladder without cholecystitis without obstruction (principal); K57.30 Diverticulosis of large intestine without perforation or abscess without bleeding; R63.4 Abnormal weight loss; R31.9 Hematuria, unspecified
CPT/HCPCS: 74177; J3490; Q9967

== ENCOUNTER 2019-11-25 16:52 | Outpatient (REF) | payer OTHER, SELFPAY ==
[2019-11-26 18:42] LABS: PSA, Screening 0.2 ng/mL (0.0-6.5)
== END 2019-11-25 17:12 ==
LOC: LBN 16:52
PROVIDERS: PCP Family Medicine; Visit Provider Nurse Practitioner Gerontology
DX: N40.1 Benign prostatic hyperplasia with lower urinary tract symptoms (principal); N13.8 Other obstructive and reflux uropathy; Z12.5 Encounter for screening for malignant neoplasm of prostate
CPT/HCPCS: 84153

== ENCOUNTER 2019-12-29 04:30 | Outpatient (CLI) | payer OTHER, SELFPAY ==
[2019-12-29 08:26] LABS: Anion Gap 6.9 mmol/L (3-11); BUN 17 mg/dL (7-18); CO2 30.1 mmol/L (21.0-32.0); CREATININE 0.95 mg/dL (0.70-1.30); Calcium 9.1 mg/dL (8.5-10.1); Chloride 101 mmol/L (98-107); Glucose 90 mg/dL (74-106); Potassium 3.8 mmol/L (3.5-5.1); Sodium 138 mmol/L (136-145)
== END 2019-12-29 04:50 ==
PROVIDERS: PCP Family Medicine; Visit Provider Physician Assistant Medical
DX: R60.0 Localized edema (principal)
CPT/HCPCS: 36415; 80048

== ENCOUNTER 2020-01-20 02:26 | Outpatient (CLI) | payer OTHER, SELFPAY ==
[2020-01-22 17:09] LABS: COVID-19 RT-PCR Result NEGATIVE (Negative)
== END 2020-01-20 02:46 ==
PROVIDERS: Urology; PCP Family Medicine; Visit Provider Nurse Practitioner Gerontology
DX: Z11.59 Encounter for screening for other viral diseases (principal); Z01.818 Encounter for other preprocedural examination
CPT/HCPCS: U0003

== ENCOUNTER 2020-01-24 11:26 | Day surgery (SDC) | payer OTHER, SELFPAY ==
--- NOTE | 2020-01-24 07:55 | W.PM.HP.N ---
History of Present Illness History of Present Illness Chief Complaint: Hematuria Review of Systems Narrative: No fevers or chills No vision change or dysphasia No diabetes or thyroid No shortness of breath, cough or hemoptysis No chest pain or palpitations No nausea, vomiting, hepatitis, ulcers, jaundice, diarrhea or constipation No seizures, strokes or peripheral neuropathy No bleeding disorders or anemia No gout or arthralgia [facility] Medical History (Updated 01/20/20 @ 14:12 by Richie Powers) Burning feet syndrome Diverticulosis Former smoker quit GERD (gastroesophageal reflux disease) History of alcohol abuse Pt. denies this Hypertension Left inguinal hernia asymptomatic Right inguinal hernia Spinal stenosis Umbilical hernia asymptomatic Unintentional weight loss Upper abdominal pain Surgical History Colonoscopy - [facility] [place] 2003 Repair of inguinal hernia (07/03/17) right indirect and direct Tonsillectomy Family History Mother , 99 Mental disorder DEMENTIA Father , 84 Essential hypertension Heart disease Sister , 76 Pancreatic cancer Sister , 68 Pancreatic cancer Sister , SUICIDE at age 28. No problems noted. Sister No problems noted. Maternal Grandfather No problems noted. Paternal Grandfather No problems noted. Maternal Grandmother , 71 Stroke Paternal Grandmother , 85 No problems noted. Social History Smoking/Tobacco Use Status: Former Tobacco Use Quit Date: 02/17/99 Tobacco: How many years used: 40 Second Hand Exposure: Yes Smoking risk assessment performed?: Yes Alcohol Intake: current Alcohol Intake frequency: holidays/special occasions only Drug use: Never Substance use type: does not use Caregiver/Support person: Yes Household members: none Housing: apartment Communication Needs: None Do you need help understanding health information?: Never Pets and animals: No Sexually active: No Do you think of yourself as: straight/heterosexual Current gender identity: male What is your relationship status?: How often do you talk on the phone with friends or family?: decline to answer How often do you get together with friends or relatives?: decline to answer How often do you attend spiritism or jainism services?: decline to answer Do you belong to any clubs or organized social groups?: yes Panel score (0-1 are the most socially isolated patients): 1 What type of physical activity do you participate in: none Frequency: does not exercise Sarita/Gnosticist: Holiness Special sarita needs: No Seatbelt use: always Helmet use: No Drive 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 lactis 1 ea PO DAILY 07/01/17 01/20/20 History calcium carbonate [Tums] 200 mg PO PRN PRN 07/03/17 01/20/20 History triamcinolone acetonide 0.1 % 1 applic TOPICAL BID #30 gm 04/09/19 01/20/20 Rx topical cream pantoprazole 40 mg tablet,delayed 40 mg PO DAILY #90 tab 08/27/19 01/20/20 Rx release amlodipine 5 mg tablet 5 mg PO DAILY #90 tab-cap 10/04/19 01/20/20 Rx gabapentin 300 mg capsule 300 mg PO TID PRN tab-cap 10/12/19 01/20/20 History metoprolol succinate 50 mg 50 mg PO DAILY #90 tab 12/21/19 01/20/20 Rx tablet,extended release 24 hr tamsulosin 0.4 mg capsule 0.8 mg PO DAILY #180 cap 12/27/19 01/20/20 Rx furosemide 20 mg tablet 20 mg PO DAILY #90 tab 01/02/20 01/20/20 Rx Allergies Allergy/AdvReac Type Severity Reaction Status Date / Time lisinopril AdvReac Unknown trouble Verified 01/20/20 14:16 clearing throat COVID-19 Screening Have you, or household traveled for leisure in last 14 days?: No Had IN PERSON contact w/suspected or confirmed C-19 person: No
--- NOTE | 2020-01-24 13:06 | NUR.NOTE ---
while doing admission assessment pt was asked about quarentining after covid test and pt did not understand quarentine restrictions and admitted that he had bee going to the grocery store. 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
== END 2020-01-24 11:46 ==
PROVIDERS: PCP Family Medicine; Visit Provider Urology
DX: R31.9 Hematuria, unspecified (principal); Z53.9 Procedure and treatment not carried out, unspecified reason

== ENCOUNTER 2020-05-25 19:52 | Outpatient (CLI) | payer OTHER, SELFPAY ==
--- NOTE | 2020-05-25 06:30 | DI.RAD_ITS ---
EXAM: XR HIP RT COMPLETE AP PELVIS INDICATION: continued rt hip pain,M25.551. COMPARISON: No exams were available for comparison TECHNIQUE: 2D digital imaging was performed. FINDINGS: The hip joint spaces are well maintained. There is minimal acetabular spurring. There is minimal sp urring at the margin of the femoral heads. SI joints and pubic symphysis are unremarkable. Small en thesophytes are noted at the iliac wings. Degenerative disc changes are noted in the lower lumbar sp ine. IMPRESSION: Mild degenerative changes of the hips. DATA REPOSITORY: RADIATION DOSE DELIVERED:
== END 2020-05-25 20:12 ==
PROVIDERS: PCP Family Medicine; Visit Provider Nurse Practitioner Family
DX: M16.0 Bilateral primary osteoarthritis of hip (principal)
CPT/HCPCS: 73502